=== PATIENT | female | born 1995 | race Hispanic/Latino ===

== ENCOUNTER → 2017-03-16 | Day surgery (SDC) | payer OTHER ==
[~2017-03-16] MED LIST: FENTANYL CITRATE/PF 100MCG/2 ML INJ ONE; MIDAZOLAM HCL 2 MG/2 ML VIAL ONE; PROPOFOL IV EMULSION 10 MG/ML 20 ML VIAL ONE
--- NOTE | 2017-03-16 08:52 | Operative Report ---
DATE OF PROCEDURE: March 16, 2017 PROCEDURES PERFORMED 1. Esophagogastroduodenoscopy with biopsies. 2. Pyloric channel dilatation per TTS balloon dilators. INDICATIONS FOR PROCEDURE: Upper abdominal pain, bloating, history of nausea and vomiting. MEDICATION: Patient was done under MAC. Please see anesthesiologist's note. PROCEDURE: With the patient in the left lateral decubitus position, the flexible fiberoptic Olympus gastroscope was introduced into the esophagus under direct visualization without any difficulty. There was some patchy erythema noted in the distal esophagus. The scope was then advanced with ease into the stomach. Mucosa overlying the antrum and the body revealed some patchy erythema and low-grade edema, and biopsies were obtained and sent to stain for H. pylori. Pyloric channel was somewhat stenotic and that was dilated to size 20 mm per TTS balloon dilators. The pylorus was then intubated with ease. The scope was advanced all the way to the 2nd portion of the duodenum. Mucosa overlying the proximal 2nd portion revealed some patchy areas of erythema. The duodenal bulb overall appeared to be within normal limits. The scope was then withdrawn back into the stomach and retroflexed. The mucosa overlying the fundus and the cardia appeared to be within normal limits. The scope was then straightened out. The stomach was decompressed. The scope was subsequently withdrawn. Patient tolerated the procedure well. IMPRESSION 1. Distal esophagitis, mild. 2. Gastritis, biopsied. Biopsies sent to stain for Helicobacter pylori. 3. 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 4. Duodenitis, low-grade. PLAN: Follow up histology. Initiate Protonix 40 mg 1 p.o. q.a.m. a.c. Job#: [id number] [place]
== END | disposition home or self-care (01) ==
LOC: OR 06:08 → EDSEX 06:08
PROVIDERS: ATTEND Internal Medicine Gastroenterology
DX: K29.70 Gastritis, unspecified, without bleeding (principal); K31.1 Adult hypertrophic pyloric stenosis; K29.80 Duodenitis without bleeding; K20.9 Esophagitis, unspecified; J45.909 Unspecified asthma, uncomplicated; Z80.0 Family history of malignant neoplasm of digestive organs
CPT/HCPCS: 43239; 43245; 81025; C1726; J2250; 43233

== ENCOUNTER → 2017-04-13 | Day surgery (SDC) | payer OTHER ==
[~2017-04-13] MED LIST changes: +DEXTROSE 5% 250ML 250 ML IV ONE; +DEXTROSE 50% SYRINGE 50 ML IV ONE; +LIDOCAINE HCL 2% LOCAL INJ 5 ML SDV VIAL INJ ONE; -PROPOFOL IV EMULSION 10 MG/ML 20 ML VIAL ONE; +PROPOFOL IV EMULSION 10 MG/ML 50 ML VIAL ONE
--- NOTE | 2017-04-14 11:48 | Operative Report ---
DATE OF PROCEDURE: April 13, 2017 REFERRING PHYSICIAN: Dr. Altagracia Agarwal. PROCEDURE PERFORMED: Colonoscopy with biopsies. INDICATIONS FOR PROCEDURE: Crampy lower abdominal pain, change of bowel habits. MEDICATION: Patient was done under MAC. Please see anesthesiologist's note. PROCEDURE: With patient in left lateral decubitus position, flexible fiberoptic Olympus colonoscope was inserted into the rectum with ease and advanced all the way to the cecum. It was then withdrawn slowly. Mucosa overlying the cecum, ascending and transverse appeared to be within normal limits. Descending, sigmoid and rectum revealed some patchy areas of intense erythema and mild to moderate edema and random biopsies were obtained. The scope was then retroflexed into the distal rectum and the area around the dentate line appeared to be within normal limits. The scope was then straightened out and was subsequently withdrawn. Patient tolerated the procedure well. IMPRESSION: Mild patchy left-sided colitis. PLAN: Follow up histology. Initiate [facility]#3 one p.o. b.i.d. and Flex 74 mcg 1 p.o. q. a.m. a.cShayla Job#: [id number]
== END | disposition home or self-care (01) ==
LOC: OR 13:56
PROVIDERS: ATTEND Internal Medicine Gastroenterology
DX: K51.50 Left sided colitis without complications (principal); K59.00 Constipation, unspecified; K31.1 Adult hypertrophic pyloric stenosis; K29.80 Duodenitis without bleeding; K25.9 Gastric ulcer, unspecified as acute or chronic, without hemorrhage or perforation; K20.9 Esophagitis, unspecified; J45.909 Unspecified asthma, uncomplicated; F32.9 Major depressive disorder, single episode, unspecified; F41.9 Anxiety disorder, unspecified; Z80.0 Family history of malignant neoplasm of digestive organs
CPT/HCPCS: 36415; 45380; 81025; 82948; J2001; J2250; J7799